=== PATIENT | male | born 2000 | race Two or more races ===

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

== ENCOUNTER 2020-11-03 18:06 | Emergency (ER) | payer OTHER ==
[2020-11-03 18:14] VITALS: BP 118/74; PULSE 75; TEMP 97; BMI 27.7
== END 2020-11-03 19:00 | disposition home or self-care (01) ==
LOC: JERFT 18:06
DX: S61.251A Open bite of left index finger without damage to nail, initial encounter (principal); S01.551A Open bite of lip, initial encounter; S41.151A Open bite of right upper arm, initial encounter
CPT/HCPCS: 99284-25

== ENCOUNTER 2021-06-08 13:33 | Emergency (ER) | payer OTHER ==
[2021-06-08 14:00] VITALS: BP 113/75; PULSE 88; TEMP 98.5; BMI 28.1
== END 2021-06-08 17:29 | disposition home or self-care (01) ==
LOC: JER 13:33
DX: L03.116 Cellulitis of left lower limb (principal)
CPT/HCPCS: 99281-25

== ENCOUNTER 2023-04-20 21:08 | Emergency (ER) | payer OTHER ==
[2023-04-20 21:12] VITALS: BP 113/73; PULSE 79; RESP 16; TEMP 98.2; BMI 29.2
[2023-04-20] MEDS ORDERED: CLINDAMYCIN HCL 150 MG CAPSULE (FP) PO ONE (23:31)
[2023-04-20] MEDS ORDERED: CLINDAMYCIN HCL 150 MG CAPSULE (FP) ONE (23:35)
== END 2023-04-20 23:40 | disposition home or self-care (01) ==
LOC: JERFT 21:08 → JER 21:08
DX: L02.416 Cutaneous abscess of left lower limb (principal); R22.42 Localized swelling, mass and lump, left lower limb; L03.116 Cellulitis of left lower limb
CPT/HCPCS: 99283-25